=== PATIENT | female | born 1990 ===

== ENCOUNTER 2021-09-14 03:50 | Inpatient (IN) ==
[2021-09-14] MEDS ORDERED: LACTATED RINGERS 500 ML IV PRN (04:20)
[2021-09-14] MEDS ORDERED: ONDANSETRON 4 MG/2 ML VIAL IV PRN (04:20)
[2021-09-14] MEDS ORDERED: MEPERIDINE 50 MG/1 ML VIAL IV PRN (04:26)
[2021-09-14] MEDS ORDERED: BUTORPHANOL 2 MG/ML VIAL IV PRN (04:26)
[2021-09-14] MEDS ORDERED: AMPICILLIN INJ 2,000 MG in SODIUM CHLORIDE 0.9% 100 ML IV ONE (04:40)
[2021-09-14 04:57] LABS: Basophils # 0.1 10*3/uL (0.0-0.2); Basophils % 0.6 % (0.0-0.8); Eosinophils # 0.1 10*3/uL (0.0-0.87); Eosinophils % 1.6 % (0.00-10.9); Hematocrit 37.5 VOL% (35.7-47.0); Hemoglobin 12.7 GM/DL (12.0-16.0); Immature Granulocytes % 1.4 %; Immature Granulocytes Absolute 0.13 #; Lymphocytes % 22.2 % (21.3-54.2); Mean Corpuscular HGB Conc 33.9 GM/DL (32-36); Mean Corpuscular Volume 94.9 FL (87-102); Mean Platelet Volume 12.2 FL (9.6-12.0); Monocytes % 8.8 % (1.7-12.7); Neutrophils % 65.4 % (38.7-73.9); Platelet Count 141 T/CUMM (130-400); Red Blood Count 3.95 MC/CUMM (3.8-5.5); Red Cell Distribution Width 12.3 % (9.3-17.3)
[2021-09-14] MEDS: LACTATED RINGERS 1,000 ML IV SCH ×2 (05:10→14:49)
[2021-09-14] MEDS ORDERED: TRANEXAMIC ACID 1,000 MG/10 ML VIAL ONE ×2 (05:14→07:58)
[2021-09-14] MEDS ORDERED: miSOPROStoL 200 MCG TABLET ONE (05:14)
[2021-09-14 05:15] LABS: Alanine Aminotransferase 20 U/L (13-56); Albumin 2.5 G/DL (3.4-5.0); Alkaline Phosphatase 129 U/L (45-117); Aspartate Amino Transferase 19 U/L (0-37); Bilirubin,Total < 0.39 MG/DL (0.20-1.00); Blood Urea Nitrogen 9 MG/DL (7-18); Calcium 8.5 MG/DL (8.5-10.1); Carbon Dioxide 21 MMOL/L (21-32); Estimated Glom Filtration Rate 135 ML/MIN; Glucose 88 MG/DL (74-106); Osmolality,Calculated 274.5 MOS/KG (273-304); Potassium 3.8 MMOL/L (3.5-5.1); Sodium 139 MMOL/L (136-145)
[2021-09-14] MEDS ORDERED: MIDAZOLAM 2 MG/2 ML VIAL ONE (06:03)
[2021-09-14] MEDS ORDERED: fentaNYL 250 MCG/5 ML VIAL ONE (06:03)
[2021-09-14] MEDS ORDERED: METHYLERGONOVINE 0.2 MG/1 ML AMP ONE ×2 (06:06→07:58)
[2021-09-14] MEDS ORDERED: PHENYLEPHRINE 1 MG/10 ML SYRINGE IV ONE (06:28)
[2021-09-14 06:29] LABS: Cord Arterial Blood HCO3 19.1 MMOL/L
[2021-09-14 06:31] LABS: Cord Venous Blood HCO3 19.9 MMOL/L; Cord Venous Blood PCO2 35.4 MMHG; Cord Venous Blood PO2 31.3
[2021-09-14] MEDS ORDERED: KETOROLAC 30 MG/1 ML VIAL ONE (06:41)
[2021-09-14] MEDS ORDERED: ACETAMINOPHEN INJ 1,000 MG/100 ML VIAL IV ONE (06:41)
[2021-09-14] MEDS ORDERED: OXYTOCIN 10 UNIT/ML VIAL ONE (06:58)
[2021-09-14] MEDS ORDERED: OXYTOCIN/D5LR 20 UNIT/1,000 ML PREMIX IV ONE (07:00)
[2021-09-14] MEDS ORDERED: KETOROLAC 30 MG/1 ML VIAL IV ONE (07:52)
[2021-09-14] MEDS ORDERED: CARBOPROST TROMETHAMINE 250 MCG/ML AMP IM ONE (07:58)
[2021-09-14] MEDS ORDERED: SODIUM CHLORIDE 0.9% 100 ML IV ONE (07:58)
[2021-09-14 10:17] LABS: Basophils % 0.1 % (0.0-0.8); Eosinophils % 0.1 % (0.00-10.9); Hematocrit 25.8 VOL% (35.7-47.0); Hemoglobin 8.5 GM/DL (12.0-16.0); Immature Granulocytes % 1.1 %; Lymphocytes # 1.1 10*3/uL (1.4-4.0); Lymphocytes % 5.9 % (21.3-54.2); Mean Corpuscular HGB Conc 32.9 GM/DL (32-36); Mean Corpuscular Volume 97.4 FL (87-102); Mean Platelet Volume 11.9 FL (9.6-12.0); Neutrophils % 88.8 % (38.7-73.9); Platelet Count 127 T/CUMM (130-400); Red Blood Count 2.65 MC/CUMM (3.8-5.5); Red Cell Distribution Width 12.7 % (9.3-17.3); White Blood Count 18.6 T/CUMM (4-12)
[2021-09-14 14:32] LABS: Basophils % 0.2 % (0.0-0.8); Hematocrit 23.9 VOL% (35.7-47.0); Hemoglobin 7.9 GM/DL (12.0-16.0); Immature Granulocytes % 0.7 %; Immature Granulocytes Absolute 0.12 #; Lymphocytes % 5.7 % (21.3-54.2); Mean Corpuscular HGB Conc 33.1 GM/DL (32-36); Mean Corpuscular Volume 99.2 FL (87-102); Mean Platelet Volume 12.6 FL (9.6-12.0); Monocytes % 3.3 % (1.7-12.7); Neutrophils % 90.1 % (38.7-73.9); Platelet Count 120 T/CUMM (130-400); Red Blood Count 2.41 MC/CUMM (3.8-5.5); Red Cell Distribution Width 12.6 % (9.3-17.3); White Blood Count 18.3 T/CUMM (4-12)
[2021-09-14] MEDS: ACETAMINOPHEN 500 MG TABLET PO SCH (15:20)
[2021-09-14] MEDS ORDERED: KETOROLAC 30 MG/1 ML VIAL IV SCH (15:30)
[2021-09-14] MEDS: SODIUM CHLORIDE 0.9% 1,000 ML IV PRN (17:14)
[2021-09-14] MEDS: AMPICILLIN INJ 1,000 MG in SODIUM CHLORIDE 0.9% 100 ML IV SCH (17:16)
[2021-09-14] MEDS ORDERED: ACETAMINOPHEN 500 MG TABLET PO ONE (21:10)
[2021-09-14] MEDS ORDERED: diphenhydrAMINE CAP 25 MG CAPSULE PO PRN (21:11)
[2021-09-14] MEDS: ceFAZolin 2,000 MG/50 ML DUPLEX IV SCH (21:20)
[2021-09-14] MEDS ORDERED: SODIUM CHLORIDE 0.65% NASAL SPRAY 45 ML BOTTLE BOTH NARES PRN (21:54)
[2021-09-14] MEDS ORDERED: FUROSEMIDE 20 MG/2 ML VIAL IV ONE (21:55)
[2021-09-14] MEDS: KETOROLAC 30 MG/1 ML VIAL IV SCH (22:13)
[2021-09-15] MEDS ORDERED: ACETAMINOPHEN/CODEINE 300-30 MG TABLET PO PRN ×2 (01:09)
[2021-09-15] MEDS: ACETAMINOPHEN 500 MG TABLET PO SCH (01:22)
[2021-09-15] MEDS: SIMETHICONE CHEW 80 MG TABLET PO PRN (03:48)
[2021-09-15] MEDS: KETOROLAC 30 MG/1 ML VIAL IV SCH (03:53)
[2021-09-15] MEDS: ceFAZolin 2,000 MG/50 ML DUPLEX IV SCH (04:42)
[2021-09-15 05:57] LABS: Basophils % 0.2 % (0.0-0.8); Eosinophils # 0.1 10*3/uL (0.0-0.87); Eosinophils % 0.6 % (0.00-10.9); Hematocrit 21.1 VOL% (35.7-47.0); Hemoglobin 6.9 GM/DL (12.0-16.0); Immature Granulocytes % 0.7 %; Immature Granulocytes Absolute 0.07 #; Lymphocytes # 1.5 10*3/uL (1.4-4.0); Lymphocytes % 14.5 % (21.3-54.2); Mean Corpuscular HGB Conc 32.7 GM/DL (32-36); Mean Corpuscular Volume 97.7 FL (87-102); Mean Platelet Volume 11.8 FL (9.6-12.0); Red Blood Count 2.16 MC/CUMM (3.8-5.5); Red Cell Distribution Width 13.5 % (9.3-17.3)
[2021-09-15 06:00] LABS: Platelet Count 100 T/CUMM (130-400); White Blood Count 10.6 T/CUMM (4-12)
[2021-09-15 06:22] LABS: Hypochromasia 2+; Microcytosis 1+; Platelet Estimate Decreased
[2021-09-15] MEDS: SODIUM CHLORIDE 0.9% 1,000 ML IV PRN (09:11)
[2021-09-15] MEDS: MULTIVITAMIN (PRENATAL) TABLET PO SCH (09:48)
[2021-09-15] MEDS: DOCUSATE SODIUM 100 MG CAPSULE PO SCH ×2 (09:48→20:56)
[2021-09-15] MEDS: FERROUS SULFATE 325 MG TABLET PO SCH ×3 (09:48→20:56)
[2021-09-15] MEDS: KETOROLAC 30 MG/1 ML VIAL IV PRN ×2 (09:49→18:39)
[2021-09-15] MEDS ORDERED: oxyCODONE/ACETAMINOPHEN 5-325 MG TABLET PO PRN ×2 (10:02→10:03)
[2021-09-15 14:16] LABS: Hematocrit 25.4 VOL% (35.7-47.0); Hemoglobin 8.4 GM/DL (12.0-16.0)
[2021-09-15] MEDS: MAGNESIUM HYDROXIDE SUSP 30 ML UDCUP PO PRN (20:57)
[2021-09-16] MEDS: IBUPROFEN 800 MG TABLET PO PRN ×2 (00:11→06:06)
[2021-09-16 08:21] VITALS: BP 98/53
[2021-09-16] MEDS: DOCUSATE SODIUM 100 MG CAPSULE PO SCH (08:59)
[2021-09-16] MEDS: SIMETHICONE CHEW 80 MG TABLET PO PRN (08:59)
[2021-09-16] MEDS: MAGNESIUM HYDROXIDE SUSP 30 ML UDCUP PO PRN (08:59)
[2021-09-16] MEDS: FERROUS SULFATE 325 MG TABLET PO SCH (08:59)
[2021-09-16] MEDS: MULTIVITAMIN (PRENATAL) TABLET PO SCH (08:59)
== END 2021-09-16 12:45 | disposition home or self-care (01) | DRG 787 ==
LOC: N.LD 03:50 → N.OB 20:45
PROVIDERS: ADMIT Obstetrics & Gynecology; ATTEND Obstetrics & Gynecology
PROC: LDCSECT (ICD-10-PCS; 2021-09-14 05:40)